=== PATIENT | female | born 1940 | race Caucasian/White ===

== ENCOUNTER 2023-09-02 06:29 | Day surgery (SDC) | payer MEDICARE, SELFPAY ==
[2023-09-02] VITALS (12 sets, daily range): BP systolic 131–179; BP diastolic 70–88; PULSE 54–66; RESP 16–20; TEMP 36.7–36.8; O2SAT 98–100; BMI 24.1
[2023-09-02] MEDS: lidocaine HCL 2 % MULTIDOSE 20 ML VIAL INJECTION (07:00)
[2023-09-02] MEDS: ETHYL CHLORIDE 1 APPLICATION 1 APPLIC TOPICAL (07:00)
[2023-09-02] MEDS: BUPIVACAINE 0.5% 30 ML INJECTION (07:00)
--- NOTE | 2023-09-02 07:50 | CRLHL7_ITS ---
For Patients: As a result of the Century Cures Act, medical imaging exams and procedure reports are released immediately into your electronic medical record. You may view this report before your referring provider. If you have questions, please contact your health care provider. Indication: index mass and bone fragment excision Technique: Two views left index finger Comparison: 07/30/2023 Findings: Interval resection of the bone fragment adjacent to the distal aspect of the index finger distal phalanx. Small residual curvilinear density adjacent to the distal tuft related to the prior trauma. Narrowing and spurring at the DIP joint. Impression: Postop changes. Dictated by Jonnathan Tran MD @ 09/02/2023 11:36:15 AM (Electronically Signed)
[2023-09-02] MEDS: NEOMYCIN/BACITRACIN/POLYMYXIN B 1 APPLIC TOPICAL (08:08)
--- NOTE | 2023-09-02 08:08 | P.ORPRC_ITS ---
Procedure Note Date of procedure: 09/02/23 Procedure: PREOPERATIVE DIAGNOSIS: 1. Left index finger distal phalanx malunion with nail plate adherence disruption POSTOPERATIVE DIAGNOSIS: 1. Left index finger distal phalanx malunion with nail plate adherence disruption PROCEDURE: 1. Left index finger open excisional debridement including bone distal phalanx SURGEON: Jeremy Regalado MD. STORE SALES CONSULTANT: FELIPA Hull - Of note, an life enrichment assistant was critical for this case to aid in patient positioning, tissue retraction, limb manipulation/positioning, patient safety, & closure. ANESTHESIA: Local anesthetic (50:50 mixture of 2% lidocaine plain and 0.5% marcaine plain) EBL: 2 mL IMPLANTS: None TOURNIQUET: 25 minutes digital tourni-cot COMPLICATIONS: None evident INDICATIONS: The patient is a pleasant 82-year-old female who sustained a left index finger distal phalanx open fracture 05/2023. Initially, closed treatment was elected after debridement in the emergency department. Unfortunately, the distal phalanx went on to a malunion with the tuft fragment displaced dorsally causing nail plate adherence difficulties. 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 Given the failure of nonoperative management, surgery was indicated. DESCRIPTION OF PROCEDURE: Following a thorough discussion of risks, benefits, a nd alternatives consent was obtained and the operative extremity was marked. The patient was brought to the operating room and placed supine on the operating table. No antibiotics were administered as this was planned to be a local case only. Proper time-out was performed identifying proper patient, site, and procedure. The operative extremity was prepped and draped in the appropriate sterile fashion using ChloraPrep. The limb was exsanguinated and the tourniquet inflated. Initially, the nail plate was removed by mobilizing it with a [place] elevator on both the superficial and deep surfaces. This was cleaned and soaked in Betadine for short while with plan to replace it through the eponychial fold. Thereafter, a small longitudinal incision was made through the hyponychium to expose the distal phalanx bone. A [place] elevator help mobilize the sterile matrix around it and hypopnea kill tissue. The bone was removed/excised with combination of [place] elevator and rongeur. Intraoperative x-rays of the left index finger (PA and lateral) were obtained to confirm complete excision of bony fragment and anatomic position of the remaining distal phalanx. Thorough irrigation normal saline was performed, the nail plate was replaced under the eponychial fold and sutured in place with 4-0 nylon. The same suture was utilized to reapproximate the small hypodermic heel incision. Soft dressings were applied, and the patient was awoken/transferred to the recovery room in stable condition. PLAN: 1. Encourage elevation of the operative extremity. 2. Range of motion of the operative extremity/digits as tolerated. 3. Ibuprofen, acetaminophen and/or oxycodone as needed for pain. 4. Follow up with nurse visit for dressing change. Then PA visit at 10-14 days from surgery for suture removal.
== END 2023-09-02 08:31 | disposition home or self-care (01) ==
PROVIDERS: Visit Provider Orthopaedic Surgery Sports Medicine
PROC: 0HQQXZZ Repair Finger Nail, External Approach (ICD-10-PCS; CPT 11760; principal; 2023-09-02 07:30)
DX: S62.631A Displaced fracture of distal phalanx of left index finger, initial encounter for closed fracture (principal)
CPT/HCPCS: 11012; 73140; J0665

== ENCOUNTER 2025-01-27 15:17 | Emergency (ER) | payer MEDICARE, SELFPAY ==
--- OUTSIDE RECORDS SUMMARY | 2025-01-27 15:20 | XMS_ITS | Clinical Summary ---
Author Organization [employer] [facility] Address [address] [place] [id number] Care Team Providers Care Shipping Associate Name Role Phone Mely Mendoza DO Primary Care Provider [phone] Allergies Active Allergy Reactions Criticality Noted Date Comments Codeine *Unknown 04/27/2014 Out of body experience. Medications sertraline (ZOLOFT) 50 mg tablet Take 50 mg by mouth once daily in the morning. 3 Active predniSONE (DELTASONE) 10 mg tablet Take 5 mg by mouth once daily with a meal. 3 Active oxybutynin XL (DITROPAN XL) 10 mg CR tablet Take 10 mg by mouth once daily. 4 Active losartan (COZAAR) 100 mg tabletIndication s:Primary hypertension Take 1 Tablet (100 mg) by mouth once daily. 90 Tablet 3 4 Active OneTouch Verio test strips stripIndications :Diet-controlled diabetes mellitus (HC) As directed. 100 Each 3 5 Active blood sugar diagnostic (Blood Glucose Test) stripIndications :Diet-controlled diabetes mellitus (HC) Test 1 times per day. 100 Each 3 5 Active fluticasone furoate-vilanter oL (BREO ELLIPTA) 100-25 mcg/dose inhalation powderIndication s:Mild persistent asthma without complication Inhale 1 Puff by mouth once daily. Rinse and spit after use. 180 Each 3 5 Active albuterol HFA (Ventolin HFA) 90 mcg/actuation inhalerIndicatio ns:Mild persistent asthma without complication Inhale 2 Puffs by mouth 4 times daily if needed for Shortness Of Breath or Wheezing. Use with spacer. 3 Each 3 5 Active inhalational spacing deviceIndication s:Mild persistent asthma without complication With HFA inhaler For home use. 1 Each 5 Active ProAir RespiClick 90 mcg/actuation INHALER Inhale 1 Puff by mouth every 4 hours. 3 01/26/20 25 Discontin ued(*Avai lability/ Formulary change/Co st of medicatio n) blood sugar diagnostic (Blood Glucose Test) stripIndications :Diet-controlled diabetes mellitus (HC) Test 1 times per day. 100 Each 12 4 01/09/20 25 Discontin ued(Reord er (E-cancel not sent)) fluticasone furoate-vilanter oL (BREO ELLIPTA) 100-25 mcg/dose inhalation powderIndication s:Mild persistent asthma without complication INHALE 1 PUFF BY MOUTH AT THE SAME TIME EVERY DAY. RINSE AND SPIT AFTER USE 180 Each 4 01/26/20 25 Discontin ued(Reord er (E-cancel not sent)) Active Problems Problem Noted Date Diagnosed Date History of deep venous thrombosis 01/26/2025 Localized edema 01/26/2025 History of pulmonary embolism 01/26/2025 Anxiety 08/11/2024 History of DVT (deep vein thrombosis) 08/11/2024 Diet-controlled diabetes mellitus 08/11/2024 Primary hypertension 08/11/2024 Asthma 12/23/2008 Overview (12/23/2008): [facility] October 2008 Obstructive sleep apnea Overview (12/23/2008): [facility]. Dyspnea Overview (07/24/2010): ECHO negative, EF 65% Encounters Date Type Department Care Team Description 01/27/2025 11:15 AM PHYTOPATHOLOGIST Ancillary Procedure [facility] [address] [place] [address] Arrived 01/27/2025 Telephone [facility] [place] [address] [place] [address] [place] [phone] Massiel Louis MD Provider to Provider 01/26/2025 11:25 AM PHYTOPATHOLOGIST Office Visit [facility] [place] [address] [place] [phone] Massiel Louis MD Follow Up (asthma follow/pulmonary) 01/26/2025 Travel 01/09/2025 Refill [facility] [address] Shaqra, Mely Antoinette, DO Refill Request; GLUCOSE TEST STRIPS 12/12/2024 Telephone [facility] [address] Shaqra, Mely Antoinette, DO Need Meds 12/09/2024 11:00 AM PHYTOPATHOLOGIST Office Visit [facility] [place] [address] Shaqra, Mely Antoinette, DO Blood Pressure (BP - readings at home ranging from 140-150/70-80's, repeat BMP kidney function) 12/09/2024 Travel 11/07/2024 Orders Only [facility] [address] Shaqra, Mely Antoinette, DO <No scans attached> 11/04/2024 10:00 AM PHYTOPATHOLOGIST Nurse/Clinic Staff Only [facility] [address] Blood Pressure (148/70) 11/04/2024 9:45 AM PHYTOPATHOLOGIST Orders Only [facility] [place] [address] Lab, [facility] 11/04/2024 9:20 AM PHYTOPATHOLOGIST Ancillary Procedure [facility] [place] [address] 11/04/2024 Telephone [facility] [place] [address] Shaqra, Mely Antoinette, DO Blood Pressure 11/04/2024 Travel 11/01/2024 Travel from Last 3 Months Immunizations Name Administration Dates Next Due INFLUENZA, IIV3 PF (AGE >= 6 MO) 08/18/2009 Influenza RIV4 (Age 18+ Years) PRESERV FREE 10/01 Influenza Virus, Unspecified 09/03/2010 Influenza, High-dose Inactivated 10/21/2017,08/01 Pneumococcal Poly,23-Valent (Pneumovax) 04/27/20 11 Tdap 06/19/2023,05/13/2011 Zoster (Zostavax-ZVL, live) 05/17/2015 Family History Medical History Relation Name Comments Cancer-breast Daughter Cancer-breast Paternal Aunt Cancer-breast Paternal Grandmother Cancer-breast Sister Relation Name Status Comments Daughter Paternal Aunt Paternal Grandmother Sister Social History Tobacco Use Types Packs/Day Years Used Date Smoking Tobacco: Never Smokeless Tobacco: Never Tobacco Cessation:Counseling Given: Not Answered Alcohol Use Standard Drinks/Week Comments Not Currently 0 (1 standard drink = 0.6 oz pur e alcohol) PHQ-2 Answer Date Recorded PHQ-2 TOTAL SCORE 0 09/30/2024 Social Connections Answer Date Recorded Do you often feel lonely or isolated from those around you? 0 08/11/2024 Financial Resource Strain Answer Date R ecorded Difficulty of Paying Living Expenses 3 08/11/2024 Difficulty of Paying Living Expenses Not on file 08/11/2024 Food Insecurity Answer Date Recorded Do you worry your food will run out before you are able to buy more? 1 08/11/2024 Transportation Needs Answer Date Record ed Does lack of transportation keep you from medica l appointments? 1 08/11/2024 Does lack of transportation keep you from work, meetings or getting things that you need? 1 08/11/2024 Housing Stability Answer Date Recorded What is your housing situation today? 1 08/11/2024 Utilities Answer Date Recorded Do you have trouble paying f or utilities (for example, heat, electricity, water, phone)? 1 08/11/2024 Comments No Sex and Gender Information Value Date Recorded Sex Assigned at Not on file Legal Sex Female 6:20 AM PHYTOPATHOLOGIST Gender Identity Not on file Sexual Orientation Not on file Obstetrics History Last Filed Vital Signs Vital Sign Reading Time Taken Comments Blood Pressure 140/70 01/26/2025 11:30 AM PHYTOPATHOLOGIST Pulse 57 01/26/2025 11:30 AM PHYTOPATHOLOGIST Temperature - - Respiratory Rate - - Oxygen Saturation 99% 01/26/2025 11:30 AM PHYTOPATHOLOGIST Inhaled Oxygen Concentration - - Weight 56.3 kg (124 lb 3.2 oz) 01/26/2025 11:30 AM PHYTOPATHOLOGIST Height 149.9 cm (4' 11) 01/26/2025 11:30 AM PHYTOPATHOLOGIST Body Mass Index 25.09 01/26/2025 11:30 AM PHYTOPATHOLOGIST Plan of Treatment Health Maintenance Due Date Last Done Comments DEXA/DXA scan for age 65+ 2005 Pneumococcal series for age 50+ (2 of 2 - PCV) 04/27/2012 04/27/2011 Zoster (shingles) series for age 50+ (2 of 3) 07/12/2015 05/17/2015 RSV vaccine for adults or (1 - 1-dose 75+ series) 2015 COVID-19 vaccine series (3 - season) 2024 04/22/2021, 04/01/2021 Influenza for age 65+ 07/31/2024 10/22/2019 , 10/21/2017, 08/24/2015, Additional history exists Depression screening for age 12+ 09/30/2025 09/30/2024, 08/12/2024, 08/11/2024 Medicare Wellness for age 65+ 10/01/2025 09/30/2024 BMI (ht and wt on same day) for age 18+ 01/26/2026 01/26/2025, 09/30/2024, 08/11/2024 Tetanus booster 06/19/2033 06/19/2023, 05/13/2011 Tdap Completed 06/19/2023, 05/13/2011 Procedures Procedure Name Priority Date/Time Associated Diagnosis Comments US VENOUS LOWER EXTREMITY BILATERAL BRANDY 01/27/2025 12:16 PM PHYTOPATHOLOGIST History of deep venous thrombosis Localized edema Dyspnea, unspecified type BASIC METABOLIC PANEL Routine 12/09/2024 11:23 AM PHYTOPATHOLOGIST Elevated serum creatinine XR MAMMO SUZETTE BILAT SCREEN Routine 11/04/2024 9:45 AM PHYTOPATHOLOGIST Routine adult health maintenance BASIC METABOLIC PANEL Routine 11/04/2024 9:41 AM PHYTOPATHOLOGIST Primary hypertension from Last 3 Months Results * US VENOUS LOWER EXTREMITY BILATERAL (01/27/2025 12:16 PM PHYTOPATHOLOGIST) Anatomical Region Laterality Modality LEGS, LEG L, LEG R Ultrasound 01/27/2025 1:26 PM PHYTOPATHOLOGIST Impressions 01/27/2025 1:26 PM PHYTOPATHOLOGIST 1. DVT in the right popliteal vein. 2. Superficial thrombus in the left greater saphenous vein along the mid calf 3. No evidence of deep vein thrombosis within either the left lower extremity. 4. 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 Louis is aware of results. Dr. Tran notified Dr. Louis of results on 01/27/2025 at 1:20pm. Dictated by Tata Aldana MD @ 01/27/2025 12:46:08 PM (Electronically Signed) Narrative 01/27/2025 1:26 PM PHYTOPATHOLOGIST For Patients: As a result of the Century Cures Act, medical imaging exams and procedure reports are released immediately into your electronic medical record. You may view this report before your referring provider. If you have questions, please contact your health care provider. INDICATION: History of deep venous thrombus TECHNIQUE: A compression venous ultrasound exam was performed of both lower extremities using gonsalez scale imaging, color Doppler and spectral Doppler analysis. FINDINGS: Sonographic imaging of the left lower extremities demonstrates normal compressibility and color Doppler venous blood flow within the common femoral, deep femoral, and proximal greater saphenous veins. Within the thighs the femoral veins are patent and compressible. At a lower level the popliteal and posterior tibial veins also show normal compressibility and color Doppler venous blood flow. Within the right lower extremity. Normal compressibility and blood flow in the common femoral vein, femoral vein deep femoral vein. Partial compressibility with thrombus in the right popliteal vein. Normal compressibility in the posterior tibial and peroneal veins. 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 Superficial thrombus In the left greater saphenous vein along the mid calf. Procedure Note Tata Aldana MD - 01/27/2025 For Patients: As a result of the Cures Act, medical imagingexams and procedure reports are released immediately into your electronicmedical record. You may view this report before your referring provider.If you have questions, please contact your health care provider. INDICATION: History of deep venous thrombus TECHNIQUE: A compression venous ultrasound exam was performed of both lowerextremities using gonsalez scale imaging, color Doppler and spectral Doppleranalysis. FINDINGS: Sonographic imaging of the left lower extremities demonstrates normalcompressibility and color Doppler venous blood flow within the commonfemoral, deep femoral, and proximal greater saphenous veins. Within thethighs the femoral veins are patent and compressible. At a lower level thepopliteal and posterior tibial veins also show normal compressibility andcolor Doppler venous blood flow. Within the right lower extremity. Normal compressibility and blood flow inthe common femoral vein, femoral vein deep femoral vein. Partialcompressibility with thrombus in the right popliteal vein. Normalcompressibility in the posterior tibial and peroneal veins. 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 Superficial thrombus In the left greater saphenous vein along the mid calf. IMPRESSION: 1. DVT in the right popliteal vein. 2. Superficial thrombus in the left greater saphenous vein along the midcalf 3. No evidence of deep vein thrombosis within either the left lowerextremity. 4. 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 Louis is aware of results. Dr. Tran notified Dr. Louis ofresults on 01/27/2025 at 1:20pm. Dictated by Tata Aldana MD @ 01/27/2025 12:46:08 PM (Electronically Signed) us Massiel Louis MD Final Resul t * (ABNORMAL) BASIC METABOLIC PANEL (12/09/2024 11:23 AM PHYTOPATHOLOGIST) Only the most recent of2 resultswithin the time period is included. GLUCOSE 112(H) 65 - 99 mg/dL [facility] Comment: Fasting reference interval For someone without known diabetes, a glucose value between 100 and 125 mg/dL is consistent with prediabetes and should be confirmed with a follow-up test. UREA NITROGEN (BUN) 16 7 - 25 mg/dL [facility] CREATININE 1.23(H) 0.60 - 0.95 mg/dL [facility] EGFR 44(L) > OR = 60 mL/min/1.7 3m2 [facility] BUN/CREATININE RATIO 13 6 - 22 (calc) [facility] SODIUM 142 135 - 146 mmol/L [facility] POTASSIUM 4.6 3.5 - 5.3 mmol/L [facility] CHLORIDE 104 98 - 110 mmol/L [facility] CARBON DIOXIDE 27 20 - 32 mmol/L [facility] ELECTROLYTE BALANCE 11 7 - 17 mmol/L (calc) [facility] CALCIUM 9.5 8.6 - 10.4 mg/dL [facility] Blood BLOOD SPECIMEN / Unknown 12/09/2024 11:23 AM PHYTOPATHOLOGIST 12/09/2024 11:23 AM PHYTOPATHOLOGIST us Mely Mendoza DO CHEMISTRY Final Result [facility] [address] [place] [address], [facility] [address] [place] [address] * XR MAMMO SUZETTE BILAT SCREEN (11/04/2024 9:45 AM PHYTOPATHOLOGIST) Anatomical Region Laterality Modality BREASTS, Breast Left, Breast Right Bilateral Mammography Impressions 11/07/2024 2:09 PM PHYTOPATHOLOGIST There is no radiographic evidence for malignancy. Recommend annual mammograms. MAMMOGRAM ASSESSMENT: ACR 1 Negative PATIENTS: You will also receive a letter with your examination results in an easy to read format. If you have questions about your results, please contact your referring provider. Narrative 11/07/2024 2:09 PM PHYTOPATHOLOGIST For Patients: As a result of the Century Cures Act, medical imaging exams and procedure reports are released immediately into your electronic medical record. You may view this report before your referring provider. If you have questions, please contact your health care provider. XR MAMMO SUZETTE BILAT SCREEN [[id number]] CLINICAL HISTORY: This is an asymptomatic 83 y.o. patient. INDICATION FOR EXAM: Mammogram Screening. TECHNIQUE: CC & MLO views were obtained. This study was evaluated with the assistance of Computer-Aided Detection. Breast Tomosynthesis was used in interpretation. COMPARISON FILM: Yes 07/29/23 Outside Facility 07/22/22 Outside Facility FINDINGS: There are scattered areas of fibroglandular density. There are no dominant masses, suspicious micro calcifications or areas of architectural distortion. Mely Mendoza DO MAMMO Final Result from Last 3 Months Insurance MEDICARE PART B HB ONLY MEDICARE PB ONLY Care Teams Shipping Associate Relationship Specialty Start Date End [place] [address] PCP - General Family Practice 07/14/24
[2025-01-27 15:25] VITALS: BP 150/55; PULSE 62; RESP 16; TEMP 36.2; O2SAT 96; BMI 24.2
--- NOTE | 2025-01-27 15:42 | ED.GENADULT ---
HPI - General Adult General Date Seen: 01/27/25 Chief complaint: Lower Extremity Swelling Stated complaint: Possible blood clot left leg Time Seen by Provider: 01/27/25 15:24 History of Present Illness HPI narrative: 84 yo F with a past medical history of asthma, type 2 diabetes, hyperlipidemia, sleep apnea , and history of previous DVTs and PE (years ago, no longer on anticoagulation. No known history of hypercoagulability.), she also reports that her doctor told her to keep an eye on her kidney function because of her diabetes but she has no known history of kidney failure. She is sent to the ER today by her doctors. She had a checkup with her program clerk yesterday, and annual checkup for asthma. She was doing well but she happened to mention to her program clerk that she had swelling in her right leg ongoing for the past couple of weeks. Her right leg has not been painful. It has not been changing colors. No known trauma. No recent travel or immobility. She does note that she had ?the cold that is going around? about 3 or 4 weeks ago but has gotten over that. She wonders if the swelling started while she had that cold. Her leg is not painful. She is not having any chest pain or shortness of breath in the past week or 2. No dizziness or fainting. She simply mention the swelling in her leg in passing to her doctor at her checkup yesterday Her doctor order a lower extremity ultrasound. She went to the [facility] clinic this morning and had an outpatient venous ultrasound.. US VENOUS RIGHT LOWER EXTREMITY 01/27/25 IMPRESSION: ? 1. DVT in the right popliteal vein. 2. Superficial thrombus in the left greater saphenous vein along the mid calf 3. No evidence of deep vein thrombosis within either the left lower extremity. ? 4. 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 Related Data Home Medications ?Medication ?Instructions ?Recorded ?Confirmed amlodipine 2.5 mg tablet 2.5 mg PO DAILY 06/19/23 09/25/23 blood sugar diagnostic (CultureIQTouch #10 ea 06/19/23 09/25/23 Verio test strips) blood-glucose meter (CultureIQTouch #1 ea 06/19/23 09/25/23 Verio Reflect Meter) fluticasone furoate 100 1 ea inhalation DAILY 06/19/23 09/25/23 mcg-vilanterol 25 mcg/dose inhalation powder (Breo Ellipta) metformin 500 mg tablet 1,000 mg PO BID 08/14/23 09/25/23 oxybutynin chloride 10 mg 10 mg PO DAILY 08/14/23 09/25/23 tablet,extended release 24 hr sertraline 50 mg tablet 50 mg PO DAILY 08/14/23 09/25/23 Previous Rx's ?Medication ?Instructions ?Recorded apixaban 5 mg (74 tabs) tablets in See Rx Instructions PO .COMPLEX 01/27/25 a dose pack (Sensdata DVT-PE Treat #74 ea 30D Start) Allergies Allergy/AdvReac Type Severity Reaction Status Date / Time codeine AdvReac Unknown had an Verified 09/25/23 09:44 out of body experience, states almost [facility] Medical History Fracture of phalanx of finger ?S62.609A - Fracture of unspecified phalanx of unspecified finger, initial encounter for closed fracture (ICD-10) At risk for infection ?Z91.89 - Other specified personal risk factors, not elsewhere classified (ICD-10) Laceration Finger pain, left ?M79.645 - Pain in left finger(s) (ICD-10) Surgical History S/P excisional debridement (09/02/23) ?Z98.890 - Other specified postprocedural states (ICD-10) History of phacoemulsification of cataract of left eye with intraocular lens implantation (09/12/09) ?Z98.42 - Cataract extraction status, left eye (ICD-10) ?Z96.1 - Presence of intraocular lens (ICD-10) History of phacoemulsification of cataract of right eye with intraocular lens implantation (09/26/09) ?Z98.41 - Cataract extraction status, right eye (ICD-10) ?Z96.1 - Presence of intraocular lens (ICD-10) History of sinus surgery ?Z98.890 - Other specified postprocedural states (ICD-10) History of hysterectomy ?Z90.710 - Acquired absence of both cervix and uterus (ICD-10) History of appendectomy ?Z90.49 - Acquired absence of other specified parts of digestive tract (ICD-10) Family History Other Breast cancer Social History Smoking Status: Never smoker Do you use any of these nicotine containing products: None Second hand tobacco smoke exposure: No How often do you have a drink containing alcohol: never How often do you have six or more drinks on one occasion: Never AUDIT-C Alcohol total score: 0 Non-prescribed substance use: denies use service: No Exam Narrative: Exam Narrative: Constitutional: Appears well-developed and well-nourished. Alert. Conversant. Non toxic. HENT: Head: Atraumatic. Nose: Nose normal. Mouth/Throat: Oral mucosa is clear and moist. no trismus. Eyes: Conjunctivae normal. EOM normal. Pupils equal, round, and reactive to light. No scleral icterus. Neck: Normal range of motion. Neck supple. No tracheal deviation present. Cardiovascular: Normal rate, regular rhythm. No gallop. No friction rub. No murmur heard. Symmetric DP and PT artery pulses . Normal distal cap refill Pulmonary/Chest: Effort normal. No stridor. No respiratory distress. No wheezes. No rales. No rhonchi . No tenderness. Musculoskeletal: RUE: Normal range of motion. No tenderness. No deformity LUE: Normal range of motion. No tenderness. No deformity RLE: Normal range of motion in her hip, knee, ankle, toes. Subtle edema affecting the calf and lower extremity and ankle. No palpable cord. No bruising. No tenderness. LLE: Normal range of motion. No edema. No tenderness. No deformity Lymph: No skin redness to suggested infection and no ascending lymphangiti Neurological: Alert and oriented to person, place, and time. Normal strength. CN II-VII intact. No sensory deficit. GCS eye subscore is 4. GCS verbal subscore is 5. GCS motor subscore is 6. Normal coordination Skin: Skin is warm and dry. No rash noted. No pallor. Normal capillary refill. Psychiatric: Normal mood. Normal affect. Very pleasant and accompanied by her friend. They interact very jovially together Const: Vital Signs, click to edit/add: Vital Signs - 24 hr 01/27/25 15:25 01/27/25 17:30 Temperature 97.1 F L Pulse Rate [Pulse Oximeter] 62 68 Respiratory Rate 16 Blood Pressure [Ri t Upper Arm] 150/55 H 141/57 H Pulse Oximetry 96 93 Oxygen Delivery Me thod Room Air Room Air Course Vital Signs Vital signs: Initial Vital Signs Temperature 97.1 F L 01/27/25 15:25 Temperature Source Temporal Artery Scan 01/27/25 15:25 Pulse Rate 62 01/27/25 15:25 Respiratory Rate 16 01/27/25 15:25 Blood Pressure 150/55 H 01/27/25 15:25 Blood Pressure Mean 86 01/27/25 15:25 Blood Pressure Position Sitting 01/27/25 15:25 Pulse Oximetry 96 01/27/25 15:25 Oxygen Delivery Method Room Air 01/27/25 15:25 Vital Signs Temperature 97.1 F L 01/27/25 15:25 Pulse Rate 62 01/27/25 15:25 Respiratory Rate 16 01/27/25 15:25 Blood Pressure 150/55 H 01/27/25 15:25 Pulse Oximetry 96 01/27/25 15:25 Oxygen Delivery Method Room Air 01/27/25 15:25 Temperature 97.1 F L 01/27/25 15:25 Pulse Rate 68 01/27/25 17:30 Respiratory Rate 16 01/27/25 15:25 Blood Pressure 141/57 H 01/27/25 17:30 Pulse Oximetry 93 01/27/25 17:30 Oxygen Delivery Method Room Air 01/27/25 17:30 Medications Administered Medications: Discontinued Medications Generic Name Dose Route Start Last Admin Trade Name Adrian PRN Reason Stop Dose Admin Apixaban 10 mg 01/27/25 17:23 01/27/25 17:37 Apixaban 5 Mg Tablet PO 01/27/25 17:24 10 mg ONCE ONE Administration Medical Decision Making MDM Narrative Medical decision making narrative: Very pleasant 84-year-old female with a history of previous DVT and PE but no longer on blood thinners. She is sent to the ER today after she had a lower extremity venous ultrasound that was positive for a popliteal DVT in her right leg (also superficial clots in her left leg). She had been having swelling in that right leg for the past couple of weeks after a viral illness. She is not having any chest pain, shortness of breath, tachycardia, syncope or other symptoms to suggest PE. At this point I think she is safe for outpatient management. Although that she is 84 there is risk for bleeding, concern is with multiple clots in the past and another DVT that she is probably hypercoagulable. Would be best to reinitiate anticoagulation. Discussed options including DOAC verses warfarin. Laboratory workup is reassuring. No renal failure. She has no history of liver disease Patient would strongly prefer DOAC, given simplicity. We discussed the risk of bleeding on blood thinners. First dose of Eliquis administered here in the ER. Prescription for DVT dose Eliquis sent to her pharmacy. She will fill her prescription in the morning and continue therapy. She will follow-up with her PCP at the [facility] within 1 week to recheck. Will probably need outpatient hypercoagulable workup to help determine duration of anticoagulation therapy after this blood clot. Incidentally she also has a right knee Barboza cyst. She is not having any pain there. At this point does not need immediate orthopedic evaluation Lab Data Labs: Lab Results 01/27/25 Range/Units 16:11 WBC 5.65 (4.50-11.00) K/uL RBC 3.40 L (4.00-5.20) m/uL Hgb 10.8 L (12.0-16.0) gm/dL Hct 32.6 L (33.0-51.0) % MCV 96 (80-100) fL MCH 32 (26-34) pg MCHC 33 (32-36) gm/dL RDW Coeff of Ugo 14.2 (11.5-15.5) % Plt Count 164 (140-440) K/uL Neut % (Auto) 64.0 (42.0-72.0) % Lymph % (Auto) 21.8 (20-44) % Roosevelt % (Auto) 11.0 (0.0-11.0) % Eos % (Auto) 2.5 (0.0-7.0) % Baso % (Auto) 0.5 (0.0-3.0) % Neut # (Auto) 3.62 (1.7-7.0) K/uL Lymph # (Auto) 1.20 (0.90-2.90) K/uL Roosevelt # (Auto) 0.62 (0.00-0.90) K/UL Eos # (Auto) 0.14 (0.00-0.50) K/uL Baso # (Auto) 0.03 (0.00-0.30) K/uL Abs Immat Gran (auto) 0.01 (0.00-0.30) K/uL Imm/Tot Granulo (auto) 0.2 % INR 0.91 (0.91-1.10) Sodium 141 (135-149) mmol/L Potassium 4.2 (3.6-5.1) mmol/L Chloride 105 (96-114) mmol/L Carbon Dioxide 29 (20-32) mmol/L Anion Gap 7 (7-15) mEq/L BUN 27 (7-30) mg/dL Creatinine 1.3 (0.5-1.5) mg/dL Estimated Creat Clear 27.68 Estimated GFR 41 ml/min Glucose 111 (60-115) mg/dL Calcium 9.0 (8.4-10.6) mg/dL Discharge Plan Discharge Clinical Impression: DVT (deep venous thrombosis), Barboza cyst Patient Disposition: Home, Self-Care Condition: Stable Instructions: Deep Vein Thrombosis (DC) Additional Instructions: Please start on the blood thinner today (Eliquis). Take it twice daily. For the 1st week take higher dose-10 mg twice a day. After that the dose decreases down to 5 mg twice a day. Please check with your regular doctor within the next 7 days. If you have any problems; such as worsening pain or swelling in your leg, chest pain or trouble breathing, unusual bleeding, please come back to the ER right away. Prescriptions: New Eliquis DVT-PE Treat 30D Start 5 mg (74 tabs) tablets,dose pack See Rx Instructions .ROUTE .COMPLEX Qty: 74 0RF Rx Instructions: orally per package directions No Action sertraline 50 mg tablet 50 mg PO DAILY metformin 500 mg tablet 1,000 mg PO BID oxybutynin chloride 10 mg tablet extended release 24hr 10 mg PO DAILY fluticasone furoate-vilanterol [Breo Ellipta] 100-25 mcg/dose blister with device 1 ea inhalation DAILY (DME) OneTouch Verio test strips Strip See Rx Instructions .ROUTE DAILY Qty: 10 Rx Instructions: As directed (DME) blood-glucose meter [CultureIQTouch Verio Reflect Meter] Misc See Rx Instructions .ROUTE .MEDSUPPLY Qty: 1 Patient Comments: [NO ORIGINAL SIG] Rx Instructions: As directed amlodipine 2.5 mg tablet 2.5 mg PO DAILY Follow Up/Referrals: Provider,Not a Local [Primary Care Provider] - Stand Alone Forms: [facility] Info Instructions
[2025-01-27 16:24] LABS: Basophils Absolute Auto 0.03 K/uL (0.00-0.30); Basophils Percent Auto 0.5 % (0.0-3.0); Eosinophils Absolute Auto 0.14 K/uL (0.00-0.50); Eosinophils Percent Auto 2.5 % (0.0-7.0); Hematocrit 32.6 % (33.0-51.0); Hemoglobin* 10.8 gm/dL (12.0-16.0); Immature Granulocytes Abs Auto 0.01 K/uL (0.00-0.30); Immature Granulocytes Pct Auto 0.2 %; Lymphocytes Percent Auto 21.8 % (20-44); Mean Corpuscular HGB Conc 33 gm/dL (32-36); Mean Corpuscular Hemoglobin 32 pg (26-34); Mean Corpuscular Volume 96 fL (80-100); Monocytes Absolute Auto 0.62 K/UL (0.00-0.90); Neutrophils Absolute Auto 3.62 K/uL (1.7-7.0); Platelet Count* 164 K/uL (140-440); RDW Coefficient of Variation % 14.2 % (11.5-15.5); White Blood Count* 5.65 K/uL (4.50-11.00)
[2025-01-27 16:30] LABS: Slide Review Reflex No
[2025-01-27 16:34] LABS: Chloride* 105 mmol/L (96-114); Potassium* 4.2 mmol/L (3.6-5.1); Sodium* 141 mmol/L (135-149)
[2025-01-27 16:36] LABS: INR 0.91 (0.91-1.10)
[2025-01-27 16:37] LABS: Anion Gap 7 mEq/L (7-15); Blood Urea Nitrogen* 27 mg/dL (7-30); Carbon Dioxide* 29 mmol/L (20-32); Creatinine* 1.3 mg/dL (0.5-1.5); Est. Creatinine Clearance* 27.68; Estimated Glomerular Filt Rate 41 ml/min; Glucose* 111 mg/dL (60-115)
--- OUTSIDE RECORDS SUMMARY | 2025-01-27 16:43 | XMS_ITS | Clinical Summary ---
Author Organization [facility] Address [address] [place] [id number] Care Team Providers Care Carpet Installer Helper Name Role Phone Mely Mendoza DO Primary Care Provider [phone] Allergies Active Allergy Reactions Criticality Noted Date [...] Primary hypertension 08/11/2024 Asthma 12/23/2008 Overview (12/23/2008): [facility] October 2008 Obstructive sleep apnea Overview (12/23/2008): [facility]. Dyspnea Overview (07/24/2010): ECHO negative, EF 65% Encounters Date Type Department Care Team Description 01/27/2025 11:15 AM FLORAL DESIGNER Ancillary Procedure [facility] [address] [place] [address] Arrived 01/27/2025 Telephone [facility] [place] [address] [place] [phone] Massiel Louis MD Provider to Provider 01/26/2025 11:25 AM FLORAL DESIGNER Office Visit [facility] [place] [address] [place] [phone] Massiel Louis MD Follow Up (asthma follow/pulmonary) 01/26/2025 Travel 01/09/2025 Refill [facility] [address] Shaqra, Mely Antoinette, DO Refill Request; GLUCOSE TEST STRIPS 12/12/2024 Telephone [facility] [address] Shaqra, Mely Antoinette, DO Need Meds 12/09/2024 11:00 AM FLORAL DESIGNER Office Visit [facility] [address] Shaqra, Mely Antoinette, DO Blood Pressure (BP - readings at home ranging from 140-150/70-80's, repeat BMP kidney function) 12/09/2024 Travel 11/07/2024 Orders Only [facility] [address] Shaqra, Mely Antoinette, DO <No scans attached> 11/04/2024 10:00 AM FLORAL DESIGNER Nurse/Clinic Staff Only [facility] [place] [address] Blood Pressure (148/70) 11/04/2024 9:45 AM FLORAL DESIGNER Orders Only [facility] [place] [address] Lab, [place] [facility] 11/04/2024 9:20 AM FLORAL DESIGNER Ancillary Procedure [facility] [place] [address] 11/04/2024 Telephone [facility]an Aoyuberson [facility] [address] Shaqra, Mely Antoinette, DO Blood Pressure 11/04/2024 [...] on file Legal Sex Female 6:20 AM FLORAL DESIGNER Gender Identity Not on file Sexual Orientation Not on file Obstetrics History Last Filed Vital Signs Vital Sign Reading Time Taken Comments Blood Pressure 140/70 01/26/2025 11:30 AM FLORAL DESIGNER Pulse 57 01/26/2025 11:30 AM FLORAL DESIGNER Temperature - - Respiratory Rate - - Oxygen Saturation 99% 01/26/2025 11:30 AM FLORAL DESIGNER Inhaled Oxygen Concentration - - Weight 56.3 kg (124 lb 3.2 oz) 01/26/2025 11:30 AM FLORAL DESIGNER Height 149.9 cm (4' 11) 01/26/2025 11:30 AM FLORAL DESIGNER Body Mass Index 25.09 01/26/2025 11:30 AM FLORAL DESIGNER Plan of Treatment Health Maintenance Due Date [...] LOWER EXTREMITY BILATERAL BRANDY 01/27/2025 12:16 PM FLORAL DESIGNER History of deep venous thrombosis Localized edema Dyspnea, unspecified type BASIC METABOLIC PANEL Routine 12/09/2024 11:23 AM FLORAL DESIGNER Elevated serum creatinine XR MAMMO SUZETTE BILAT SCREEN Routine 11/04/2024 9:45 AM FLORAL DESIGNER Routine adult health maintenance BASIC METABOLIC PANEL Routine 11/04/2024 9:41 AM FLORAL DESIGNER Primary hypertension from Last 3 Months Results * US VENOUS LOWER EXTREMITY BILATERAL (01/27/2025 12:16 PM FLORAL DESIGNER) Anatomical Region Laterality Modality LEGS, LEG L, LEG R Ultrasound 01/27/2025 1:26 PM FLORAL DESIGNER Impressions 01/27/2025 1:26 PM FLORAL DESIGNER 1. DVT in the right popliteal vein. [...] PM (Electronically Signed) Narrative 01/27/2025 1:26 PM FLORAL DESIGNER For Patients: As a result of the [...] (ABNORMAL) BASIC METABOLIC PANEL (12/09/2024 11:23 AM FLORAL DESIGNER) Only the most recent of2 resultswithin the time period is included. GLUCOSE 112(H) 65 - 99 mg/dL [facility] Comment: Fasting reference interval For [...] BLOOD SPECIMEN / Unknown 12/09/2024 11:23 AM FLORAL DESIGNER 12/09/2024 11:23 AM FLORAL DESIGNER us Mely Mendoza DO CHEMISTRY Final Result [email or web address] [facility] [address] [place] [address], [facility] [address] [place] [address] * XR MAMMO SUZETTE BILAT SCREEN (11/04/2024 9:45 AM FLORAL DESIGNER) Anatomical Region Laterality Modality BREASTS, Breast Left, Breast Right Bilateral Mammography Impressions 11/07/2024 2:09 PM FLORAL DESIGNER There is no radiographic evidence for malignancy. Recommend annual mammograms. MAMMOGRAM ASSESSMENT: ACR 1 Negative PATIENTS: You will also receive a letter with your examination results in an easy to read format. If you have questions about your results, please contact your referring provider. Narrative 11/07/2024 2:09 PM FLORAL DESIGNER For Patients: As a result of the Century Cures Act, medical imaging exams and procedure reports are released immediately into your electronic medical record. You may view this report before your referring provider. If you have questions, please contact your health care provider. XR MAMMO SUZETTE BILAT SCREEN [[id number]] CLINICAL HISTORY: This is an asymptomatic 83 [...] HB ONLY MEDICARE PB ONLY Care Teams Carpet Installer Helper Relationship Specialty Start Date End Date [place] [address] PCP - General Family Practice 07/14/24
[2025-01-27 17:30] VITALS: BP 141/57; PULSE 68; O2SAT 93
[2025-01-27] MEDS: APIXABAN 5 MG TABLET 10 MG PO (17:37)
== END 2025-01-27 17:40 | disposition home or self-care (01) ==
PROVIDERS: Emergency Provider Emergency Medicine
DX: I82.431 Acute embolism and thrombosis of right popliteal vein (principal); M71.21 Synovial cyst of popliteal space [Baker], right knee
CPT/HCPCS: 36415; 80048; 85025; 85610; 99283; 99284; A9270